=== PATIENT | female | born 1990 | race Caucasian/White ===

== ENCOUNTER 2019-12-25 09:06 | Outpatient (CLI) | payer OTHER ==
--- NOTE | 2019-12-25 10:39 | RAD ---
Exam: Upper GI with air contrast: HISTORY: Morbid obesity, prior gastric sleeve. FINDINGS: Normal swallowing function. No esophageal stricture ulcer or mass. Somewhat small caliber stomach codi dence for prior gastric sleeve. Duodenum and C-loop and proximal small bowel appear normal. Small hiatal hernia. No definitive gastroesophageal reflux demonstrated during the time of this examination . IMPRESSION: Somewhat small caliber stomach. Small hiatal hernia without definitive gastroesophageal reflux. No ot her significant acute process.
== END 2019-12-25 09:07 | disposition home or self-care (01) ==
LOC: RAD 09:06
PROVIDERS: ATTEND Specialist
DX: E66.01 Morbid (severe) obesity due to excess calories (principal); K44.9 Diaphragmatic hernia without obstruction or gangrene
CPT/HCPCS: 74246

== ENCOUNTER 2020-02-03 09:26 | Inpatient (IN) | payer OTHER ==
[2020-03-23 15:20] VITALS: BMI 55.4
[2020-03-25] MEDS ORDERED: Ketorolac Tromethamine 30 MG/ML VIAL ONE (09:04)
[2020-03-25] MEDS ORDERED: Scopolamine 1.5 mg/72 hour Patch ONE (09:04)
[2020-03-25] MEDS ORDERED: Heparin 5,000 UNITS/ML VIAL ONE (09:04)
[2020-03-25] MEDS ORDERED: Acetaminophen 500 MG TAB ONE (09:05)
[2020-03-25] MEDS ORDERED: Bupivacaine 0.25% HCL 30 ML VIAL ONE (09:37)
[2020-03-25] MEDS ORDERED: Lidocaine 1% w/Epinephrine 1:100K 20 ML VIAL ONE (09:37)
[2020-03-25] MEDS ORDERED: Famotidine/PF 20 mg/2ml Vial ONE (10:11)
[2020-03-25] MEDS ORDERED: Midazolam HCl 2 mg/2 ml Vial ONE (10:12)
[2020-03-25] MEDS ORDERED: Fentanyl 100 MCG/2 ML VIAL ONE ×6 (10:13→17:20)
[2020-03-25] MEDS ORDERED: HYDROmorphone 2 MG/ML VIAL SLOW IVP PRN ×2 (11:56→16:39)
[2020-03-25] MEDS ORDERED: Meperidine HCl/PF 25 MG/ML VIAL SLOW IVP PRN ×2 (11:56→16:39)
[2020-03-25] MEDS ORDERED: Promethazine HCl 25 MG/ML VIAL SLOW IVP PRN ×2 (11:56→16:39)
[2020-03-25] MEDS ORDERED: Promethazine HCl 25 MG/ML VIAL IM PRN ×2 (11:56→16:39)
[2020-03-25] MEDS ORDERED: SUGAMMADEX SODIUM 200 MG/2 ML VIAL ONE (12:47)
[2020-03-25] MEDS ORDERED: Dexamethasone 20 MG/5 ML VIAL ONE (13:01)
[2020-03-25] MEDS ORDERED: PROPOFOL 200 MG/20 ML VIAL ONE (13:01)
[2020-03-25] MEDS ORDERED: Lidocaine 1% PF 5 ML VIAL ONE (13:01)
[2020-03-25] MEDS ORDERED: Rocuronium Bromide 10 MG/ML (10ML VIAL) ONE (13:01)
[2020-03-25] MEDS ORDERED: Ondansetron PF 4 MG/2 ML Vial ONE (13:01)
[2020-03-25] MEDS ORDERED: Ondansetron HCl/PF 4 MG/2 ML Vial IVP PRN (16:39)
[2020-03-25] MEDS ORDERED: Meperidine HCl/PF 25 MG/ML VIAL ONE (17:06)
[2020-03-25] MEDS ORDERED: HYDROmorphone 2 MG/ML VIAL ONE (18:05)
[2020-03-25] MEDS ORDERED: Dextrose 50% Abboject 50 ML SYRINGE SLOW IVP PRN (19:05)
[2020-03-25] MEDS ORDERED: Dextrose 5% in Water 1,000 ML IV PRN (19:05)
[2020-03-25] MEDS ORDERED: hydrALAZINE 20 MG/ML VIAL SLOW IVP PRN (19:05)
[2020-03-25] MEDS ORDERED: diphenhydrAMINE 50 MG/ML VIAL IVP PRN (19:05)
[2020-03-25] MEDS ORDERED: Ondansetron PF 4 MG/2 ML Vial IVP PRN (19:05)
[2020-03-25] MEDS: Enoxaparin Sodium 40 MG/0.4 ML SYRINGE SC SCH (19:30)
[2020-03-25] MEDS: D5 1/2 NS w/20 mEq KCL 1,000 ML IV SCH (19:30)
[2020-03-25] MEDS ORDERED: Ketorolac Tromethamine 30 MG/ML VIAL IVP SCH (19:30)
[2020-03-25] MEDS: Diazepam 5 MG TAB PO SCH (19:30)
[2020-03-25] MEDS: Morphine 4 MG/ML VIAL SLOW IVP PRN (20:07)
[2020-03-25] MEDS: Morphine 2 MG/ML SYRINGE SLOW IVP PRN (22:31)
[2020-03-25] MEDS: Ketorolac Tromethamine 30 MG/ML VIAL IVP SCH (23:24)
[2020-03-26] MEDS: Morphine 2 MG/ML SYRINGE SLOW IVP PRN ×2 (01:57→04:31)
[2020-03-26] MEDS: D5 1/2 NS w/20 mEq KCL 1,000 ML IV SCH ×3 (04:03→20:13)
[2020-03-26] MEDS: Ketorolac Tromethamine 30 MG/ML VIAL IVP SCH ×3 (05:09→17:35)
[2020-03-26 05:50] LABS: #Lymphocytes 1.6 thou/uL (1.20-3.40); #Monocytes 1.2 thou/uL (0.11-0.59); #Neutrophils 15.9 thou/uL (1.40-6.50); %Eosinophils 0.1 % (0.0-10.0); %Lymphocytes 8.4 % (21.0-51.0); %Monocytes 6.5 % (0.0-10.0); Hemoglobin 12.4 g/dL (12.0-16.0); Mean Corpuscular HGB CONC 30.7 g/dL (32.0-36.0); Mean Corpuscular Hemoglobin 27.1 pg (27.0-31.0); Mean Corpuscular Volume 88.4 fL (78.0-98.0); Mean Platelet Volume 8.1 fL (7.4-10.4); Platelet Count 353 thou/uL (130-400); RBC Distribution Width 14.3 % (11.5-14.5); Red Blood Cell (RBC) Count 4.57 mill/uL (4.20-5.40); White Blood Cell (WBC) Count 18.7 thou/uL (4.8-10.8)
[2020-03-26 06:20] LABS: Chloride 106 mmol/L (98-107); Potassium 4.1 mmol/L (3.5-5.1); Sodium 136 mmol/L (136-145)
--- NOTE | 2020-03-26 06:35 | OP ---
DATE OF PROCEDURE: 03/25/2020 PREOPERATIVE DIAGNOSES: Morbid obesity, history of prior sleeve gastrectomy. POSTOPERATIVE DIAGNOSES: Morbid obesity, history of prior sleeve gastrectomy. PROCEDURE PERFORMED: Laparoscopic conversion from a sleeve gastrectomy to a Nik-en-Y gastric bypass. ESCROW CLOSER: Dr. Ana Parsons. ANESTHESIA: General endotracheal. INDICATIONS: The patient is a 29-year-old white female. She underwent a sleeve gastrectomy about nine years ago. She unfortunately gained back any weight that she lost and significantly more. Her current BMI is about 55. She has undergone preoperative evaluation and education, and presents at this time for conversion from her sleeve to a bypass. DESCRIPTION OF OPERATION: Informed consent was obtained. The patient was taken to the operating room, where general endotracheal anesthesia was obtained with patient in supine position. Abdomen was prepped with ChloraPrep and draped in sterile fashion. Local anesthetic was infiltrated using a mixture of 1% lidocaine with epinephrine and 0.25% Marcaine. A 5 mm midline port was placed about 15 cm inferior to the xiphoid. The Optiview port was passed into the abdominal cavity, and pneumoperitoneum was established. Camera was passed through this port and under direct vision, I placed four additional ports, placing 5 mm ports bilaterally subcostal and a 12 mm port in the right paramedian location and a 15 mm port in the left paramedian location. Attention was turned first to the omentum, which was reflected superiorly. It was split at approximately the midline up to the level of the transverse colon. The ligament of Treitz was then identified, and the bowel was traced 40 cm distally. At that level, the small bowel was divided with a single firing of the white load of the [place] stapler. The distal segment of small bowel was devascularized for about 5 cm. I then traced the bowel 150 cm distally and at that point, I created an anastomosis between the biliary limb and the distal aspect of the Nik limb. This anastomosis was created with another firing of the white load of the [place] stapler. The enterotomy was closed with a transverse firing of the same stapler. The mesenteric defect was then closed with several interrupted sutures of 3-0 Vicryl. The anastomosis appeared to be widely patent, and the defect appeared to be completely closed. The patient was then placed into a steep reverse Trendelenburg. A Inés retractor was passed through the 5 mm epigastric incision and used to elevate the left lobe of the liver. There were some adhesions underneath the left lobe of the liver to the anterior gastric wall and fatty tissue. These were carefully taken down using electrocautery. Following this, the Inés was repositioned and held in place with the Estuardo's Arm. I then began careful dissection of the left lateral aspect of the prior sleeve gastrectomy. The staple line within the stomach was identified. The adhesions to that side of the stomach were cleared in an ascending fashion. She had copious amounts of fatty tissue in this area that made dissection somewhat challenging, but the entire stapled side of the sleeve was cleared. Some adhesions up to the underside of the diaphragm were also cleared. The point at which the esophagus entered into the abdominal cavity was carefully identified. Beginning about 5 cm distal to the gastroesophageal junction, I dissected the lesser curvature and dissection was carried into lesser sac. At this level, the sleeve was transected with a single firing of the blue load of the [place] stapler. At this juncture, the OrVil oral anvil was passed by Anesthesia down the esophagus and was visualized protruding against the distal aspect of the new gastric pouch. A gastrotomy was created with electrocautery, and the end of the device was grasped and pulled through the anterior gastric wall. It was pulled out through one of the ports until the anvil was appropriately situated, exiting the gastric pouch. The suture was removed, allowing removal of the plastic tube attached to the anvil. Attention was returned to the Nik limb. An enterotomy was created, into which the 25 mm EEA stapler was advanced. The spike was advanced through the bowel wall in a standard fashion. At this point, the anvil was attempted to mate with the spike of the EEA. For reasons that were not clear, the spike could not enter into the anvil. Multiple attempts were made over a prolonged period of time, and I could not advance the spike into the anvil. Per my request, Anesthesia withdrew the anvil back up through the esophagus and brought it out through the mouth. A replacement anvil was obtained. The markings on the packages were confirmed that these were both a 25 mm Covidien EEA devices. I could see no reason why the stapler and the anvil should not mate. Again, the end of the plastic tube was advanced down through the prior gastrotomy. Again, for reasons that were not clear, I could not pull the anvil down into the stomach pouch. It hung up over and over again at what seemed to be about 25 cm from the end of the gastrotomy. Anesthesia withdrew the anvil multiple times, attempting to re-orient this, assuring that there were no problems with the retention sutures on the anvil. At some juncture, the plastic tubing came off the anvil as they were dissociated. The plastic tubing was removed, and the anvil was pulled back out through the mouth. I then decided to obtain the anvil that came with the 25 mm EEA stapler. The gastrotomy opening was enlarged using the LigaSure device. I was able to pass the anvil within the gastric pouch and closed the opening around the anvil with a pursestring suture of 3-0 Prolene. I then placed an additional suture of 3-0 Vicryl to better approximate some tissue on the anterior aspect. At this point, the spike from the stapler easily fit into the anvil. The two segments of bowel were approximated, and the stapler was fired in order to create the anastomosis. The rings were inspected and found to be intact. The enterotomy and the devascularized section of the small bowel were removed with a final firing of the white load of the [place] stapler. The anastomosis was buttressed with 3 interrupted sutures of 3-0 Vicryl. The gastroscope was then advanced through the mouth and carefully down through the esophagus. There was some bruising and some irritation noted within the distal esophagus, but no perforation was noted. There was also bruising and ecchymosis within the gastric pouch. A leak test was performed with occlusion of the small bowel. There was no evidence of any air leak with full insufflation. The scope was then removed. The fascial defects at each of the two larger port sites were closed with [id number] sutures of 0 Vicryl using a GraNee needle. A #19 round fluted drain was placed anterior to the gastrojejunostomy and under the left lobe of the liver and brought out through the left lateral port site, where it was secured with a 3-0 nylon suture. The Inés retractor was removed. All ports and instruments were removed under direct vision. Pneumoperitoneum was carefully evacuated. Additional local anesthetic was infiltrated into each port site. The skin edges were approximated with 4-0 Monocryl subcuticular suture. Dermabond was placed externally. The only complications were technical/mechanical and involved the inability of the stapler and the anvil to connect appropriately. The patient remained in stable condition throughout the operation. Blood loss was negligible. She tolerated the procedure well and was taken to recovery room in stable condition. Job ID: [id number]
[2020-03-26 06:39] LABS: Anion Gap 12 mmol/L (10-20); BUN (Urea Nitrogen) 7 mg/dL (7.0-18.7); Calc. Creatinine Clearance 276 mL/min (70-130); Calcium 8.4 mg/dL (7.8-10.44); Carbon Dioxide 20 mmol/L (22-29); Estimated GFR-MDRD Greater than 90; Glucose 130 mg/dL (70-105)
--- NOTE | 2020-03-26 08:06 | RAD ---
EXAM: XR UGI Single Contrast No Air PROVIDED CLINICAL HISTORY: Post gastric bypass procedure. COMPARISON: None FINDINGS: Approximately 30 mL of Gastrografin was administered by mouth. Postoperative changes related to gastr ic bypass procedure are seen. There is transient holdup of contrast within the distal esophagus. Contrast does extend into the small bowel without extravasation of contrast seen to suggest a leak. P atient became nauseated after administration of the oral contrast. After patient's nausea subsided, repeat imaging was performed which again demonstrated mild residual contrast within the distal esopha sridevi. A drainage catheter overlies the left upper quadrant and epigastric region. IMPRESSION: Postoperative changes related to gastric bypass procedure without extravasation of contrast seen to s uggest a leak. There is transient hold up of contrast in the distal esophagus.
[2020-03-26] MEDS: Pantoprazole 40 MG VIAL IVP SCH (08:17)
[2020-03-26] MEDS: Morphine 4 MG/ML VIAL SLOW IVP PRN (08:17)
[2020-03-26] MEDS: Diazepam 5 MG TAB PO SCH ×2 (08:17→21:03)
[2020-03-26] MEDS ORDERED: Morphine 10 MG/ML VIAL SLOW IVP PRN (09:37)
[2020-03-26] MEDS ORDERED: GASTROGRAFIN 30 ML BOT ONE (10:07)
[2020-03-26] MEDS: Morphine 4 MG/ML VIAL IV PRN ×3 (10:41→20:14)
--- NOTE | 2020-03-26 16:55 | PRG ---
DATE OF SERVICE: 03/26/2020 SUBJECTIVE: Ms. Nuno is postoperative day #1 following laparoscopic revision of a sleeve gastrectomy into a Nik-en-Y gastric bypass. She had intraoperative problems related to mechanical issues with the stapler. She required modification versus surgery to overcome this. Because of this, I obtained an upper GI swallow today as well as I placed an intraabdominal drain. Her swallow revealed no evidence of a leak. There was slow passage of contrast. Her drain output has been minimal (30 mL today) and is serosanguineous in appearance. She notes appropriate pain at both upper abdominal incisions as well as up to her left shoulder. OBJECTIVE: VITAL SIGNS: She is afebrile, pulse is 85 to 95, blood pressure 113/74. LUNGS: Clear to auscultation. CARDIAC: Regular rate and rhythm. ABDOMEN: Obese, but soft, nontender. Bowel sounds are present and normoactive. EXTREMITIES: Unremarkable. LABORATORY DATA: Her CBC shows a high white blood cell count of 18.7 with a hemoglobin of 12.4, platelet count is 353. Her basic metabolic panel is normal except for a low carbon dioxide level of 20. ASSESSMENT: She is stable following her gastric bypass. She has been tolerating clear liquids today uneventfully and has swallowed these without any nausea or vomiting. PLAN: To continue observation until tomorrow. If she continues to tolerate clear liquids, I would plan on discharging her home. I would likely leave the drain in for discharge and remove this in my office. She is currently on no antibiotics. Job ID: [id number]
[2020-03-26] MEDS: Promethazine HCl 25 MG/ML VIAL IM PRN ×2 (17:39→20:25)
[2020-03-26] MEDS: Enoxaparin Sodium 40 MG/0.4 ML SYRINGE SC SCH (20:13)
[2020-03-27] MEDS: Ketorolac Tromethamine 30 MG/ML VIAL IVP SCH ×2 (00:44→05:49)
[2020-03-27] MEDS: Morphine 4 MG/ML VIAL IV PRN ×2 (00:45→05:50)
[2020-03-27] MEDS: D5 1/2 NS w/20 mEq KCL 1,000 ML IV SCH (03:34)
[2020-03-27] MEDS: Promethazine HCl 25 MG/ML VIAL IM PRN ×2 (03:34→07:26)
[2020-03-27 05:45] LABS: #Basophils 0.1 thou/uL (0.0-0.2); #Eosinphils 0.1 thou/uL (0.0-0.7); #Lymphocytes 2.5 thou/uL (1.20-3.40); #Monocytes 0.8 thou/uL (0.11-0.59); #Neutrophils 5.9 thou/uL (1.40-6.50); %Basophils 0.8 % (0.0-1.0); %Eosinophils 0.8 % (0.0-10.0); %Lymphocytes 27.1 % (21.0-51.0); %Monocytes 8.5 % (0.0-10.0); %Neutrophils 62.8 % (42.0-75.0); Hemoglobin 11.8 g/dL (12.0-16.0); Mean Corpuscular HGB CONC 30.9 g/dL (32.0-36.0); Mean Corpuscular Hemoglobin 27.9 pg (27.0-31.0); Mean Corpuscular Volume 90.3 fL (78.0-98.0); Mean Platelet Volume 8.3 fL (7.4-10.4); Platelet Count 311 thou/uL (130-400); RBC Distribution Width 14.5 % (11.5-14.5); Red Blood Cell (RBC) Count 4.25 mill/uL (4.20-5.40); White Blood Cell (WBC) Count 9.3 thou/uL (4.8-10.8)
[2020-03-27 05:58] LABS: Anion Gap 11 mmol/L (10-20); BUN (Urea Nitrogen) 5 mg/dL (7.0-18.7); Calc. Creatinine Clearance 276 mL/min (70-130); Calcium 8.2 mg/dL (7.8-10.44); Carbon Dioxide 23 mmol/L (22-29); Chloride 106 mmol/L (98-107); Estimated GFR-MDRD Greater than 90; Glucose 93 mg/dL (70-105); Potassium 3.6 mmol/L (3.5-5.1); Sodium 136 mmol/L (136-145)
[2020-03-27] MEDS: Diazepam 5 MG TAB PO SCH (08:03)
[2020-03-27] MEDS: diphenhydrAMINE 50 MG/ML VIAL IVP SCH ×2 (08:03→10:12)
[2020-03-27] MEDS: Pantoprazole 40 MG VIAL IVP SCH (08:04)
[2020-03-27] MEDS ORDERED: Hydrocodone-Acetamin 15 ML UDCUP PO PRN (09:11)
[2020-03-27] MEDS ORDERED: diphenhydrAMINE 25 MG CAP PO PRN (10:13)
--- NOTE | 2020-03-27 11:56 | DIS ---
DATE OF ADMISSION: 03/25/2020 DATE OF DISCHARGE: 03/27/2020 ADMISSION DIAGNOSIS: Morbid obesity. DISCHARGE DIAGNOSIS: Morbid obesity. PROCEDURE PERFORMED: Laparoscopic revision from a sleeve gastrectomy to a Nik-en-Y gastric bypass. ADMISSION HISTORY: The patient is a 29-year-old morbidly obese white female with a weight of 333 pounds and a BMI of 55. This is in spite of the sleeve gastrectomy, which was performed 9 or 10 years ago. She presents at this time for revision to a gastric bypass. HOSPITAL COURSE: She underwent surgery on the day of presentation. Her surgery was complicated by mechanical difficulties with a stapler and the method of gastrojejunal anastomosis had to be altered. Nonetheless, she was stable during the surgery and has remained stable postoperatively. A drain was placed at the time of surgery. This continues to drain a small amount of serosanguineous fluid. She had a swallow study on the morning after surgery that showed passage of contrast, although slightly delayed fashion. There was no evidence of leak. Her vital signs as mentioned, remain stable. She has been afebrile. Her pulse has varied between 81 and 95. Blood pressures remained within normal limits and stable. Her abdominal exam has been appropriate for her recent surgery and her incisions are healing nicely. Laboratory studies showed her white blood cell count dropped from 18.7 yesterday and the day after her surgery down at 9.3 today. Her hemoglobin is 11.8. Her basic metabolic panel is entirely normal. In summary, she is doing well following laparoscopic gastric bypass. I will discharge her home today. Her liquid diet was explained to her as well as importance of regular ambulation. She will be discharged home with a prescription for hydrocodone elixir. I will see her back in my office on Sunday (four days from now) for drain removal. She was given instructions regarding activity, bathing, and her home medications. Job ID: [id number]
[2020-03-27 11:57] VITALS: BP 116/83; TEMP 98
--- NOTE | 2020-04-02 23:25 | EKG ---
Test Reason : STAT Blood Pressure : / mmHG Vent. Rate : 098 BPM Atrial Rate : 098 BPM P-R Int : 136 ms QRS Dur : 068 ms QT Int : 334 ms P-R-T Axes : 055 046 030 degrees QTc Int : 426 ms Normal sinus rhythm Normal ECG When compared with ECG of 23-MAR-2020 15:48, No significant change was found Confirmed by Sarahi MCCANN ([id number]) on 04/02/2020 11:24:31 PM Referred By: SHA Confirmed By:Sarahi MCCANN
== END 2020-03-27 11:55 | disposition home or self-care (01) | DRG 621 ==
LOC: SURG A 03-25 08:30
PROVIDERS: ADMIT Specialist; ATTEND Specialist
PROC: 0D164ZA Bypass Stomach to Jejunum, Percutaneous Endoscopic Approach (ICD-10-PCS; principal; 2020-03-25)
DX: E66.01 Morbid (severe) obesity due to excess calories (principal); Z11.59 Encounter for screening for other viral diseases; Z79.899 Other long term (current) drug therapy; Z68.43 Body mass index [BMI] 50.0-59.9, adult
CPT/HCPCS: 36415; 74240; 80048; 85025; 93005; 93010; C9113; J0694; J1100; J1170; J1200; J1644; J1650; J1885; J2001; J2175; J2250; J2270; J2405; J2550; J2704; J3010; J3480; Q9963; S0020; S0028